=== PATIENT | female | born 1995 | race Caucasian/White ===

== ENCOUNTER 2020-09-26 11:41 | Emergency (ER) | payer OTHER ==
[~2020-09-26] VITALS: Ht 170.2 cm; Wt 98.6 kg
[2020-09-26 11:49] VITALS: TEMP 98.6
[2020-09-26] MEDS ORDERED: NORCO 325 MG-51 TAB PO ×2 (13:20→13:36)
[2020-09-26 13:49] VITALS: BP 126/70; PULSE 83
== END 2020-09-26 13:50 | disposition home or self-care (01) ==
LOC: COL.ER 11:41 → EDBD 11:43 → COL.ER 11:43
DX: Z47.89 Encounter for other orthopedic aftercare (principal)